=== PATIENT | male | born 1950 | race Caucasian/White ===

== ENCOUNTER 2020-06-24 19:59 | Emergency (ER) | payer MEDICARE, MEDICAID ==
[2020-06-24] MEDS ORDERED: Sodium Chloride 0.9% 1,000 ML IV SCH (20:30)
[2020-06-24] MEDS ORDERED: Alum Hydroxide/Mag Hydroxide 15 ML, Lidocaine 2% 15 ML PO ONE ×2 (20:42)
[2020-06-24 20:44] VITALS: BP 127/88; PULSE 69
--- NOTE | 2020-06-24 21:45 | EDM.PDOC ---
ED HPI GENERAL MEDICAL PROBLEM - General Chief Complaint: General Stated Complaint: BACK AND CHEST PAIN Time Seen by Provider: 06/24/20 20:05 Source of Information: Reports: Patient History Limitations: Reports: No Limitations - History of Present Illness INITIAL COMMENTS - FREE TEXT/NARRATIVE: Patient presented to the ED because of chest pain, and worsening back pain. He has a history of chronic LBP and went for physical therapy today. He also c/o chest pain,sharp, sternal area with associated nausea/vomiting x 1 en route to the ED. back Pain Score (Numeric/FACES): 9 - Related Data Allergies Allergy/AdvReac Type Severity Reaction Status Date / Time No Known Allergies Allergy Verified 01/04/16 18:51 Home Meds: Home Meds Amitriptyline [Elavil] 25 mg PO BEDTIME 01/04/16 [History] Aspirin 81 mg PO DAILY 01/04/16 [History] Gabapentin [Neurontin] 600 mg PO TID 01/04/16 [History] Losartan [Cozaar] 50 mg PO DAILY 01/04/16 [History] Omeprazole 20 mg PO DAILY 01/04/16 [History] amLODIPine [Norvasc] 2.5 mg PO DAILY 01/04/16 [History] atenoloL [Atenolol] 100 mg PO DAILY 01/04/16 [History] traMADol [Ultram] 50 mg PO ASDIRECTED PRN 01/04/16 [History] Past Medical History HEENT History: Reports: Impaired Vision Cardiovascular History: Reports: High Cholesterol, Hypertension Respiratory History: Reports: Asthma, COPD Gastrointestinal History: Reports: GERD Musculoskeletal History: Reports: Back Pain, Chronic, Other (See Below) Other Musculoskeletal History: chronic neck pain Neurological History: Reports: Other (See Below) Other Neuro History: hx pf stroke 2001; no deficit Psychiatric History: Reports: Depression Endocrine/Metabolic History: Reports: Other (See Below) Other Endocrine/Metabolic History: 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 BS is 121 Social & Family History - Family History Family Medical History: No Pertinent Family History ED ROS GENERAL - Review of Systems Review Of Systems: See Below Constitutional: Reports: No Symptoms HEENT: Reports: No Symptoms Respiratory: Reports: No Symptoms Cardiovascular: Reports: Chest Pain Endocrine: Reports: No Symptoms GI/Abdominal: Reports: Nausea, Vomiting : Reports: No Symptoms Musculoskeletal: Reports: No Symptoms Skin: Reports: No Symptoms Neurological: Reports: No Symptoms Psychiatric: Reports: No Symptoms ED EXAM, GENERAL - Physical Exam Exam: See Below Exam Limited By: No Limitations General Appearance: Alert, No Apparent Distress Eye Exam: Bilateral Eye: PERRL Ears: Normal External Exam, Normal Canal Nose: Normal Inspection, Normal Mucosa Throat/Mouth: Normal Inspection, Normal Lips, Normal Teeth Head: Atraumatic, Normocephalic Neck: Normal Inspection, Supple, Non-Tender, Full Range of Motion Respiratory/Chest: No Respiratory Distress, Lungs Clear, Normal Breath Sounds Cardiovascular: Normal Peripheral Pulses, Regular Rate, Rhythm, No Edema, No Gallop GI/Abdominal: Normal Bowel Sounds, Soft, Non-Tender, No Organomegaly Back Exam: Normal Inspection, Full Range of Motion Extremities: Normal Inspection Neurological: Alert, Oriented, CN II-XII Intact, Normal Cognition, Normal Gait Psychiatric: Normal Affect, Normal Mood Course - Vital Signs Text/Narrative:: Labs/EKG result was discussed with patient EKG-NSR Trop -neg NS 1 L bolus His nausea and chest pain resolved Last Recorded V/S: Last Vital Signs Temp 35.8 C L 06/24/20 20:00 Pulse 69 06/24/20 20:00 Resp 17 06/24/20 20:00 BP 127/88 06/24/20 20:00 Pulse Ox 100 06/24/20 20:00 - Orders/Labs/Meds Orders: Active Orders 24 hr Category Date Time Status EKG 12 Lead [EK] Routine Ther 06/24/20 20:00 Ordered Labs: Laboratory Tests 06/24/20 06/24/20 06/24/20 Range/Units 20:18 20:18 20:18 WBC 12.7 H (3.2-10.1) x10-3/uL RBC 4.84 (3.90-5.90) x10(6)uL Hgb 15.7 (12.9-17.7) g/dL Hct 48.3 (38.3-50.1) % MCV 99.8 H (80.8-98.7) fL MCH 32.5 (27.0-33.3) pg MCHC 32.5 (28.7-35.3) g/dL RDW 13.8 (12.4-15.0) % Plt Count 211 (117-477) x10(3)uL MPV 9.0 (6.7-11.0) fL Neut % (Auto) 82.8 H (40.3-71.8) % Lymph % (Auto) 7.8 L (15.8-45.3) % [place] % (Auto) 6.6 (5.5-15.2) % Eos % (Auto) 2.3 (0.1-6.8) % Baso % (Auto) 0.5 (0.3-3.8) % Neut # (Auto) 10.5 H (1.7-6.9) x10-3/uL Lymph # (Auto) 1.0 (0.5-4.5) x10-3/uL [place] # (Auto) 0.8 (0.0-1.2) x10-3/uL Eos # (Auto) 0.3 (0.0-0.6) x10-3/uL Baso # (Auto) 0.1 (0.0-0.3) x10-3/uL Sodium 131 L (135-145) mmol/L Potassium 5.2 (3.5-5.3) mmol/L Chloride 95 L (100-110) mmol/L Carbon Dioxide 28 (21-32) mmol/L BUN 15 (7-18) mg/dL Creatinine 1.6 H (0.70-1.30) mg/dL Est Cr Clr Drug Dosing TNP Estimated GFR (MDRD) 43 L (>60) BUN/Creatinine Ratio 9.4 (9-20) Glucose 158 H (80-116) mg/dL Calcium 8.9 (8.6-10.2) mg/dL Total Bilirubin 1.6 H (0.1-1.3) mg/dL AST 50 H (5-25) IU/L ALT 34 (12-36) U/L Alkaline Phosphatase 129 H (56-112) IU/L Troponin I 7.9 (4.0-60.3) pg/mL Total Protein 8.4 H (6.0-8.0) g/dL Albumin 3.8 (3.2-4.6) g/dL Globulin 4.6 g/dL Albumin/Globulin Ratio 0.8 Amylase (25-115) U/L Lipase 108 (73-393) U/L 03/01/21 Range/Units 20:18 WBC (3.2-10.1) x10-3/uL RBC (3.90-5.90) x10(6)uL Hgb (12.9-17.7) g/dL Hct (38.3-50.1) % MCV (80.8-98.7) fL MCH (27.0-33.3) pg MCHC (28.7-35.3) g/dL RDW (12.4-15.0) % Plt Count (117-477) x10(3)uL MPV (6.7-11.0) fL Neut % (Auto) (40.3-71.8) % Lymph % (Auto) (15.8-45.3) % [place] % (Auto) (5.5-15.2) % Eos % (Auto) (0.1-6.8) % Baso % (Auto) (0.3-3.8) % Neut # (Auto) (1.7-6.9) x10-3/uL Lymph # (Auto) (0.5-4.5) x10-3/uL [place] # (Auto) (0.0-1.2) x10-3/uL Eos # (Auto) (0.0-0.6) x10-3/uL Baso # (Auto) (0.0-0.3) x10-3/uL Sodium (135-145) mmol/L Potassium (3.5-5.3) mmol/L Chloride (100-110) mmol/L Carbon Dioxide (21-32) mmol/L BUN (7-18) mg/dL Creatinine (0.70-1.30) mg/dL Est Cr Clr Drug Dosing Estimated GFR (MDRD) (>60) BUN/Creatinine Ratio (9-20) Glucose (80-116) mg/dL Calcium (8.6-10.2) mg/dL Total Bilirubin (0.1-1.3) mg/dL AST (5-25) IU/L ALT (12-36) U/L Alkaline Phosphatase (56-112) IU/L Troponin I (4.0-60.3) pg/mL Total Protein (6.0-8.0) g/dL Albumin (3.2-4.6) g/dL Globulin g/dL Albumin/Globulin Ratio Amylase 34 (25-115) U/L Lipase (73-393) U/L Meds: Medications Discontinued Medications Generic Name Dose Route Start Last Admin Trade Name Didier PRN Reason Stop Dose Admin Al Hydroxide/Mg Hydroxide 15 0 ml 06/24/20 20:42 06/24/20 20:45 ml/ Lidocaine HCl 15 ml PO 06/24/20 20:43 30 ml ONETIME ONE Administration Sodium Chloride 1,000 mls @ 999 mls/hr 06/24/20 20:30 06/24/20 20:25 Normal Saline IV 999 mls/hr ASDIRECTED JONO Administration Departure - Departure Time of Disposition: 21:45 Disposition: Home, Self-Care 01 Condition: Good Clinical Impression: Dehydration, Chest pain, atypical - Discharge Information Instructions: Dehydration, Adult, [id number] Referrals: Jaylon Wilder PA-C [Primary Care Provider] - Forms: ED Department Discharge Additional Instructions: Please read discharge instructions on dehydration Drink at least 2-3 liters of water a day Follow up as needed Sepsis Event Note (ED) - Evaluation Sepsis Screening Result: No Definite Risk - Focused Exam Vital Signs: Vital Signs Temp Pulse Resp BP Pulse Ox 06/24/20 20:00 35.8 C L 69 17 127/88 100 - My Orders Last 24 Hours: My Active Orders 06/24/20 20:00 EKG 12 Lead [EK] Routine - Assessment/Plan Last 24 Hours: My Active Orders 06/24/20 20:00 EKG 12 Lead [EK] Routine
== END 2020-06-24 23:45 | disposition home or self-care (01) ==
LOC: FB.ED 19:59
DX: E86.0 Dehydration (principal); R07.89 Other chest pain; I10 Essential (primary) hypertension; J44.9 Chronic obstructive pulmonary disease, unspecified; K21.9 Gastro-esophageal reflux disease without esophagitis; G89.29 Other chronic pain; M54.5 Low back pain; Z79.82 Long term (current) use of aspirin; Z79.899 Other long term (current) drug therapy
CPT/HCPCS: 36415; 80053; 82150; 83690; 84484; 85025; 93005; 99285-25; A9270-GY; J7030

== ENCOUNTER 2022-07-03 22:33 | Emergency (ER) | payer MEDICARE, MEDICAID ==
[2022-07-03] MEDS ORDERED: Sodium Chloride 0.9% 10 ML Syringe FLUSH PRN (22:52)
[2022-07-03] MEDS ORDERED: Sodium Chloride 0.9% 1,000 ML IV ONE (23:07)
[2022-07-03 23:40] LABS: ESTIMATED GFR 59 mL/min (>60)
[2022-07-03] MEDS ORDERED: Lidocaine 2% HCl 6 ML Jel ONE ×2 (23:53→23:55)
[2022-07-04] MEDS ORDERED: Lidocaine 2% HCl 6 ML Jel MM STA (00:24)
[2022-07-04 01:18] LABS: CORONAVIRUS COVID-19 NAA NEGATIVE (NEGATIVE)
[2022-07-04] MEDS: Sodium Chloride 0.9% 1,000 ML IV SCH ×3 (01:22→04:30)
[2022-07-04] MEDS ORDERED: Sodium Chloride 0.9% 1,000 ML IV ONE ×2 (01:52→03:59)
[2022-07-04] MEDS ORDERED: LORazepam 2 MG/ML SDV IVPUSH ONE ×2 (01:52→18:44)
[2022-07-04 08:44] VITALS: BP 157/85; PULSE 117
[2022-07-04] MEDS ORDERED: Aspirin 81 MG Tab.Chew PO ONE (09:00)
[2022-07-04] MEDS ORDERED: cefTRIAXone 2 GM Vial IVPUSH ONE (09:22)
[2022-07-04 09:46] LABS: BASE EXCESS VENOUS,POC 0 mmol/L (-2 - 3+); PCO2 VENOUS,POC 56 mmHg (41-51)
[2022-07-04] MEDS ORDERED: Sodium Chloride 0.9% 1,000 ML IV SCH (19:00)
[2022-07-04 20:26] LABS: ESTIMATED GFR 72 mL/min (>60)
[2022-07-05] MEDS ORDERED: LORazepam 2 MG/ML SDV IVPUSH ONE (00:33)
[2022-07-05] MEDS ORDERED: Ondansetron 4 MG/2 ML SDV IVPUSH ONE (00:34)
== END 2022-07-05 03:04 ==
LOC: FB.ED 22:33
DX: G93.40 Encephalopathy, unspecified (principal); M62.82 Rhabdomyolysis; E86.0 Dehydration; L98.499 Non-pressure chronic ulcer of skin of other sites with unspecified severity; F10.931 Alcohol use, unspecified with withdrawal delirium; R77.8 Other specified abnormalities of plasma proteins; I10 Essential (primary) hypertension; J44.9 Chronic obstructive pulmonary disease, unspecified; K21.9 Gastro-esophageal reflux disease without esophagitis; Z79.82 Long term (current) use of aspirin; Z79.899 Other long term (current) drug therapy; Z87.891 Personal history of nicotine dependence; Z20.822 Contact with and (suspected) exposure to COVID-19
CPT/HCPCS: 0240U; 36415; 51702; 70450; 71045; 72125; 73030-RT; 80053; 80307; 81001; 82550; 82947; 83605; 83735; 84484; 85025; 85730; 86140; 87040; 87086; 93005; 93010; 96361; 96374; 96375; 96376; 99285; 99285-25; A9270-GY; J0696; J2060; J2405; J7030

== ENCOUNTER 2022-07-16 10:30 | Inpatient (IN) | payer MEDICARE, MEDICAID ==
[2022-07-16] MEDS ORDERED: traMADol 50 MG Tab PO PRN (17:14)
[2022-07-16] MEDS ORDERED: Acetaminophen 500 MG Tab PO PRN (17:14)
[2022-07-16] MEDS ORDERED: Albuterol 90 MCG/6.7 GM Inhaler INH PRN (17:14)
[2022-07-16] MEDS ORDERED: Glucagon,Human Recombinant 1 MG Vial IM PRN (17:17)
[2022-07-16] MEDS ORDERED: 50% Dextrose in Water 50 ML Syringe IVPUSH PRN (17:17)
[2022-07-16] MEDS: Insulin Lispro 100 Unit/ML 3 ML KwikPen SUBCUT SCH (18:01)
[2022-07-16] MEDS: metFORMIN 500 MG Tab PO SCH (18:03)
[2022-07-16] MEDS ORDERED: Lactulose Soln 10 GM/15 ML 30 ML UD Cup PO SCH (21:00)
[2022-07-16] MEDS: Propranolol 40 MG Tab PO SCH (21:57)
[2022-07-16] MEDS: Amitriptyline 25 MG Tab PO SCH (21:58)
[2022-07-16] MEDS: Pregabalin 100 MG Cap PO SCH (21:59)
[2022-07-16] MEDS: Fish Oil/Omega-3 Fatty Acids 1 Gm Cap PO SCH (23:11)
[2022-07-17] MEDS: Pantoprazole 40 MG Tab.CR PO SCH (06:55)
[2022-07-17] MEDS ORDERED: Loratadine 10 MG Tab PO PRN (07:03)
[2022-07-17] MEDS: Insulin Lispro 100 Unit/ML 3 ML KwikPen SUBCUT SCH ×3 (08:42→17:53)
[2022-07-17] MEDS: metFORMIN 500 MG Tab PO SCH ×2 (09:56→17:55)
[2022-07-17] MEDS: Aspirin 81 MG Tab.Chew PO SCH (09:56)
[2022-07-17] MEDS: Lactulose Soln 10 GM/15 ML 15 ML UD Cup PO SCH ×2 (09:56→20:28)
[2022-07-17] MEDS: Fish Oil/Omega-3 Fatty Acids 1 Gm Cap PO SCH ×2 (09:57→20:29)
[2022-07-17] MEDS: Tamsulosin 0.4 MG Cap.ER PO SCH (09:57)
[2022-07-17] MEDS: Cholecalciferol (Vitamin D3) 25 MCG Tab PO SCH (09:58)
[2022-07-17] MEDS: Multivitamin Tab PO SCH (09:58)
[2022-07-17] MEDS: atorvaSTATin 20 MG Tab PO SCH (09:58)
[2022-07-17] MEDS: Propranolol 40 MG Tab PO SCH ×2 (09:58→20:29)
[2022-07-17] MEDS: Pregabalin 100 MG Cap PO SCH ×2 (09:58→20:34)
[2022-07-17] MEDS ORDERED: Insulin Lispro 100 Unit/ML 3 ML KwikPen SUBCUT ONE (12:07)
[2022-07-17] MEDS: Amitriptyline 25 MG Tab PO SCH (20:28)
[2022-07-18] MEDS: Pantoprazole 40 MG Tab.CR PO SCH (06:40)
[2022-07-18] MEDS: Lactulose Soln 10 GM/15 ML 15 ML UD Cup PO SCH ×2 (09:13→21:01)
[2022-07-18] MEDS: Aspirin 81 MG Tab.Chew PO SCH (09:13)
[2022-07-18] MEDS: Fish Oil/Omega-3 Fatty Acids 1 Gm Cap PO SCH ×2 (09:13→21:01)
[2022-07-18] MEDS: metFORMIN 500 MG Tab PO SCH ×2 (09:14→18:01)
[2022-07-18] MEDS: Cholecalciferol (Vitamin D3) 25 MCG Tab PO SCH (09:14)
[2022-07-18] MEDS: Insulin Lispro 100 Unit/ML 3 ML KwikPen SUBCUT SCH ×3 (09:14→18:00)
[2022-07-18] MEDS: Propranolol 40 MG Tab PO SCH ×2 (09:14→21:01)
[2022-07-18] MEDS: atorvaSTATin 20 MG Tab PO SCH (09:15)
[2022-07-18] MEDS: Multivitamin Tab PO SCH (09:15)
[2022-07-18] MEDS: Tamsulosin 0.4 MG Cap.ER PO SCH (09:15)
[2022-07-18] MEDS: Pregabalin 100 MG Cap PO SCH ×2 (09:17→21:04)
[2022-07-18] MEDS: Amitriptyline 25 MG Tab PO SCH (21:01)
[2022-07-19] MEDS: Pantoprazole 40 MG Tab.CR PO SCH (06:55)
[2022-07-19] MEDS: Aspirin 81 MG Tab.Chew PO SCH (09:26)
[2022-07-19] MEDS: Lactulose Soln 10 GM/15 ML 15 ML UD Cup PO SCH ×2 (09:26→20:16)
[2022-07-19] MEDS: Cholecalciferol (Vitamin D3) 25 MCG Tab PO SCH (09:26)
[2022-07-19] MEDS: Multivitamin Tab PO SCH (09:26)
[2022-07-19] MEDS: Insulin Lispro 100 Unit/ML 3 ML KwikPen SUBCUT SCH ×3 (09:27→17:49)
[2022-07-19] MEDS: Fish Oil/Omega-3 Fatty Acids 1 Gm Cap PO SCH ×2 (09:27→20:17)
[2022-07-19] MEDS: Propranolol 40 MG Tab PO SCH ×2 (09:27→20:17)
[2022-07-19] MEDS: Tamsulosin 0.4 MG Cap.ER PO SCH (09:27)
[2022-07-19] MEDS: metFORMIN 500 MG Tab PO SCH ×2 (09:27→17:49)
[2022-07-19] MEDS: atorvaSTATin 20 MG Tab PO SCH (09:28)
[2022-07-19] MEDS: Pregabalin 100 MG Cap PO SCH ×2 (09:30→20:20)
[2022-07-19] MEDS: Amitriptyline 25 MG Tab PO SCH (20:17)
[2022-07-20] MEDS: Pantoprazole 40 MG Tab.CR PO SCH (06:34)
[2022-07-20] MEDS: Insulin Lispro 100 Unit/ML 3 ML KwikPen SUBCUT SCH ×3 (08:50→18:04)
[2022-07-20] MEDS: metFORMIN 500 MG Tab PO SCH ×2 (08:51→18:04)
[2022-07-20] MEDS: Fish Oil/Omega-3 Fatty Acids 1 Gm Cap PO SCH ×2 (08:52→20:47)
[2022-07-20] MEDS: Multivitamin Tab PO SCH (08:52)
[2022-07-20] MEDS: Lactulose Soln 10 GM/15 ML 15 ML UD Cup PO SCH ×2 (08:52→20:47)
[2022-07-20] MEDS: Aspirin 81 MG Tab.Chew PO SCH (08:52)
[2022-07-20] MEDS: Tamsulosin 0.4 MG Cap.ER PO SCH (08:52)
[2022-07-20] MEDS: atorvaSTATin 20 MG Tab PO SCH (08:53)
[2022-07-20] MEDS: Cholecalciferol (Vitamin D3) 25 MCG Tab PO SCH (08:54)
[2022-07-20] MEDS: Propranolol 40 MG Tab PO SCH ×2 (08:55→20:48)
[2022-07-20] MEDS: Pregabalin 100 MG Cap PO SCH ×2 (08:58→20:50)
[2022-07-20] MEDS: Amitriptyline 25 MG Tab PO SCH (20:47)
[2022-07-21] MEDS: Pantoprazole 40 MG Tab.CR PO SCH (06:37)
[2022-07-21] MEDS: Insulin Lispro 100 Unit/ML 3 ML KwikPen SUBCUT SCH ×3 (08:00→18:23)
[2022-07-21] MEDS: metFORMIN 500 MG Tab PO SCH ×2 (09:36→18:24)
[2022-07-21] MEDS: Lactulose Soln 10 GM/15 ML 15 ML UD Cup PO SCH ×2 (09:37→20:20)
[2022-07-21] MEDS: Aspirin 81 MG Tab.Chew PO SCH (09:37)
[2022-07-21] MEDS: Tamsulosin 0.4 MG Cap.ER PO SCH (09:37)
[2022-07-21] MEDS: Fish Oil/Omega-3 Fatty Acids 1 Gm Cap PO SCH ×2 (09:37→20:22)
[2022-07-21] MEDS: Propranolol 40 MG Tab PO SCH ×2 (09:37→20:21)
[2022-07-21] MEDS: atorvaSTATin 20 MG Tab PO SCH (09:38)
[2022-07-21] MEDS: Multivitamin Tab PO SCH (09:38)
[2022-07-21] MEDS: Cholecalciferol (Vitamin D3) 25 MCG Tab PO SCH (09:38)
[2022-07-21] MEDS: Pregabalin 100 MG Cap PO SCH ×2 (09:42→20:22)
[2022-07-21] MEDS: Amitriptyline 25 MG Tab PO SCH (20:21)
[2022-07-22] MEDS: Pantoprazole 40 MG Tab.CR PO SCH (06:32)
[2022-07-22] MEDS: Insulin Lispro 100 Unit/ML 3 ML KwikPen SUBCUT SCH (10:04)
[2022-07-22] MEDS: Aspirin 81 MG Tab.Chew PO SCH (10:06)
[2022-07-22] MEDS: Lactulose Soln 10 GM/15 ML 15 ML UD Cup PO SCH ×2 (10:06→20:35)
[2022-07-22] MEDS: metFORMIN 500 MG Tab PO SCH ×2 (10:06→18:18)
[2022-07-22] MEDS: Fish Oil/Omega-3 Fatty Acids 1 Gm Cap PO SCH ×2 (10:06→20:37)
[2022-07-22] MEDS: Cholecalciferol (Vitamin D3) 25 MCG Tab PO SCH (10:07)
[2022-07-22] MEDS: Tamsulosin 0.4 MG Cap.ER PO SCH (10:07)
[2022-07-22] MEDS: Multivitamin Tab PO SCH (10:07)
[2022-07-22] MEDS: Propranolol 40 MG Tab PO SCH ×2 (10:07→20:37)
[2022-07-22] MEDS: atorvaSTATin 20 MG Tab PO SCH (10:07)
[2022-07-22] MEDS: Pregabalin 100 MG Cap PO SCH ×2 (10:12→20:36)
[2022-07-22] MEDS: Amitriptyline 25 MG Tab PO SCH (20:36)
[2022-07-23] MEDS: Pantoprazole 40 MG Tab.CR PO SCH (06:31)
[2022-07-23] MEDS: Lactulose Soln 10 GM/15 ML 15 ML UD Cup PO SCH ×2 (09:40→20:40)
[2022-07-23] MEDS: Cholecalciferol (Vitamin D3) 25 MCG Tab PO SCH (09:40)
[2022-07-23] MEDS: Aspirin 81 MG Tab.Chew PO SCH (09:40)
[2022-07-23] MEDS: Fish Oil/Omega-3 Fatty Acids 1 Gm Cap PO SCH ×2 (09:40→20:40)
[2022-07-23] MEDS: metFORMIN 500 MG Tab PO SCH ×2 (09:40→17:21)
[2022-07-23] MEDS: Tamsulosin 0.4 MG Cap.ER PO SCH (09:41)
[2022-07-23] MEDS: Multivitamin Tab PO SCH (09:41)
[2022-07-23] MEDS: atorvaSTATin 20 MG Tab PO SCH (09:41)
[2022-07-23] MEDS: Propranolol 40 MG Tab PO SCH ×2 (09:41→20:40)
[2022-07-23] MEDS: Pregabalin 100 MG Cap PO SCH ×2 (09:44→20:43)
[2022-07-23] MEDS: Amitriptyline 25 MG Tab PO SCH (20:40)
[2022-07-24] MEDS: Pantoprazole 40 MG Tab.CR PO SCH (08:32)
[2022-07-24] MEDS: Lactulose Soln 10 GM/15 ML 15 ML UD Cup PO SCH ×2 (08:33→21:15)
[2022-07-24] MEDS: Propranolol 40 MG Tab PO SCH ×2 (08:33→21:16)
[2022-07-24] MEDS: Aspirin 81 MG Tab.Chew PO SCH (08:33)
[2022-07-24] MEDS: atorvaSTATin 20 MG Tab PO SCH (08:33)
[2022-07-24] MEDS: Fish Oil/Omega-3 Fatty Acids 1 Gm Cap PO SCH ×2 (08:33→21:15)
[2022-07-24] MEDS: Tamsulosin 0.4 MG Cap.ER PO SCH (08:33)
[2022-07-24] MEDS: metFORMIN 500 MG Tab PO SCH ×2 (08:33→17:59)
[2022-07-24] MEDS: Multivitamin Tab PO SCH (08:34)
[2022-07-24] MEDS: Cholecalciferol (Vitamin D3) 25 MCG Tab PO SCH (08:34)
[2022-07-24] MEDS: Pregabalin 100 MG Cap PO SCH ×2 (08:37→21:15)
[2022-07-24] MEDS: Amitriptyline 25 MG Tab PO SCH (21:15)
[2022-07-25] MEDS: Pantoprazole 40 MG Tab.CR PO SCH (06:40)
[2022-07-25 06:53] VITALS: BP 120/67; PULSE 88
[2022-07-25] MEDS: Lactulose Soln 10 GM/15 ML 15 ML UD Cup PO SCH (08:23)
[2022-07-25] MEDS: Propranolol 40 MG Tab PO SCH (08:24)
[2022-07-25] MEDS: Tamsulosin 0.4 MG Cap.ER PO SCH (08:24)
[2022-07-25] MEDS: metFORMIN 500 MG Tab PO SCH (08:24)
[2022-07-25] MEDS: Fish Oil/Omega-3 Fatty Acids 1 Gm Cap PO SCH (08:24)
[2022-07-25] MEDS: Cholecalciferol (Vitamin D3) 25 MCG Tab PO SCH (08:24)
[2022-07-25] MEDS: atorvaSTATin 20 MG Tab PO SCH (08:24)
[2022-07-25] MEDS: Multivitamin Tab PO SCH (08:24)
[2022-07-25] MEDS: Aspirin 81 MG Tab.Chew PO SCH (08:25)
[2022-07-25] MEDS: Pregabalin 100 MG Cap PO SCH (08:28)
== END 2022-07-25 14:55 | disposition home health service (06) | DRG 948 ==
LOC: FB.MS 15:04
PROVIDERS: ADMIT Family Medicine; ATTEND Family Medicine
DX: R53.1 Weakness (principal); F10.10 Alcohol abuse, uncomplicated; N40.0 Benign prostatic hyperplasia without lower urinary tract symptoms; K21.9 Gastro-esophageal reflux disease without esophagitis; E78.00 Pure hypercholesterolemia, unspecified; I10 Essential (primary) hypertension; J44.9 Chronic obstructive pulmonary disease, unspecified; K76.82 Hepatic encephalopathy; E11.40 Type 2 diabetes mellitus with diabetic neuropathy, unspecified; F32.A Depression, unspecified; G89.29 Other chronic pain; M54.9 Dorsalgia, unspecified; Z86.73 Personal history of transient ischemic attack (TIA), and cerebral infarction without residual deficits; Z79.82 Long term (current) use of aspirin; Z79.899 Other long term (current) drug therapy; Z79.84 Long term (current) use of oral hypoglycemic drugs
CPT/HCPCS: 82947; 97110-GO; 97110-GP; 97116-GP; 97161-GP; 97165-GO; 97530-GO; 97535-GO; 99305; 99316; A9270-GY; J1815

== ENCOUNTER 2023-02-08 18:50 | Emergency (ER) | payer MEDICARE, MEDICAID ==
[2023-02-08] MEDS ORDERED: Ondansetron 4 MG Tab.DIS PO ONE (18:51)
[2023-02-08] MEDS ORDERED: Sodium Chloride 0.9% 10 ML Syringe FLUSH PRN (19:29)
[2023-02-08] MEDS ORDERED: Sodium Chloride 0.9% 500 ML IV ONE ×2 (19:56→21:01)
[2023-02-08] MEDS ORDERED: Ondansetron 4 MG/2 ML SDV IVPUSH ONE (19:56)
[2023-02-08 20:27] LABS: BASOPHILS PERCENT AUTO 0.3 % (0.3-3.8); EOSINOPHILS ABSOLUTE AUTO 0.1 x10-3/uL (0.0-0.6); EOSINOPHILS PERCENT AUTO 0.9 % (0.1-6.8); HEMATOCRIT 50.9 % (38.3-50.1); HEMOGLOBIN 17.1 g/dL (12.9-17.7); LYMPHOCYTES ABSOLUTE AUTO 1.2 x10-3/uL (0.5-4.5); LYMPHOCYTES PERCENT AUTO 8.4 % (15.8-45.3); MEAN CORPUSCULAR HEMOGLOBIN 33.2 pg (27.0-33.3); MEAN CORPUSCULAR HGB CONC 33.6 g/dL (28.7-35.3); MEAN CORPUSCULAR VOLUME 98.9 fL (80.8-98.7); MEAN PLATELET VOLUME 8.9 fL (6.7-11.0); MONOCYTES PERCENT AUTO 7.3 % (5.5-15.2); NEUTROPHILS ABSOLUTE AUTO 11.6 x10-3/uL (1.7-6.9); NEUTROPHILS PERCENT AUTO 83.1 % (40.3-71.8); PLATELET COUNT,PLT 226 x10(3)uL (117-477); RED BLOOD CELL COUNT 5.14 x10(6)uL (3.90-5.90); RED CELL DISTRIBUTION WIDTH 14.5 % (12.4-15.0)
[2023-02-08 20:28] LABS: BLOOD UREA NITROGEN,BUN 19 mg/dL (7-18); CALCIUM 9.8 mg/dL (8.6-10.2); CARBON DIOXIDE,CO2 28 mmol/L (21-32); CHLORIDE,CL 99 mmol/L (100-110); CREATININE 1.9 mg/dL (0.70-1.30); ESTIMATED GFR 37 mL/min (>60); GLUCOSE RANDOM 113 mg/dL (80-116); POTASSIUM,K 5.5 mmol/L (3.5-5.3); SODIUM,NA 133 mmol/L (135-145)
[2023-02-08 20:32] LABS: C-REACTIVE PROTEIN 1.52 mg/dL (<0.33)
[2023-02-08 20:35] LABS: A/G RATIO 0.8; ALANINE AMINOTRANSFERASE,ALT 31 U/L (12-36); ALBUMIN 3.8 g/dL (3.2-4.6); ALKALINE PHOSPHATASE 108 IU/L (56-112); ASPARTATE AMNIOTRANSFERASE,AST 22 IU/L (5-25); BILIRUBIN TOTAL 1.6 mg/dL (0.1-1.3); MAGNESIUM 1.8 mg/dL (1.8-2.5); PROTEIN TOTAL,TP 8.9 g/dL (6.0-8.0)
[2023-02-08] MEDS ORDERED: Sodium Chloride 0.9% 1,000 ML IV ONE (23:10)
[2023-02-09] MEDS ORDERED: Sodium Chloride 0.9% 1,000 ML IV ONE (01:50)
[2023-02-09 04:57] VITALS: BP 130/75; PULSE 79
== END 2023-02-09 04:31 | disposition home or self-care (01) ==
LOC: FB.ED 18:50
DX: E86.0 Dehydration (principal); R19.7 Diarrhea, unspecified; R11.10 Vomiting, unspecified; E11.9 Type 2 diabetes mellitus without complications; J44.9 Chronic obstructive pulmonary disease, unspecified; I10 Essential (primary) hypertension; Z79.899 Other long term (current) drug therapy; Z79.82 Long term (current) use of aspirin; Z79.84 Long term (current) use of oral hypoglycemic drugs; Z20.822 Contact with and (suspected) exposure to COVID-19
CPT/HCPCS: 36415; 80053; 82550; 83605; 83690; 83735; 85025; 86140; 96361; 96374; 99283; 99285-25; J2405; J7030; J7040; Q0162; U0002